=== PATIENT | male | born 1990 | race Caucasian/White ===

== ENCOUNTER 2020-10-27 17:00 | Emergency (ER) | payer MEDICAID ==
[~2020-10-27] VITALS: Ht 167.6 cm; Wt 102.0 kg
[2020-10-27 17:15] VITALS: BP 136/79
== END 2020-10-27 18:12 ==
LOC: ER 17:02
DX: S50.812A Abrasion of left forearm, initial encounter (principal); M25.571 Pain in right ankle and joints of right foot; F17.200 Nicotine dependence, unspecified, uncomplicated; Z72.89 Other problems related to lifestyle; V87.7XXA Person injured in collision between other specified motor vehicles (traffic), initial encounter; Y93.89 Activity, other specified; Y92.89 Other specified places as the place of occurrence of the external cause; Y99.8 Other external cause status
CPT/HCPCS: 73610; 99283

== ENCOUNTER 2024-06-13 21:13 | Emergency (ER) | payer MEDICAID ==
[~2024-06-13] VITALS: Ht 165.1 cm; Wt 90.9 kg
[2024-06-13 21:15] VITALS: BP 157/105; PULSE 117; RESP 16; O2SAT 99
[2024-06-13 23:20] VITALS: TEMP 99.1
== END 2024-06-13 21:36 ==
LOC: ER 21:13
DX: Z02.89 Encounter for other administrative examinations (principal); F10.90 Alcohol use, unspecified, uncomplicated; V89.2XXA Person injured in unspecified motor-vehicle accident, traffic, initial encounter; Y93.89 Activity, other specified; Y92.89 Other specified places as the place of occurrence of the external cause; Y99.8 Other external cause status
CPT/HCPCS: 99283